=== PATIENT | female | born 1945 | race Caucasian/White ===

== ENCOUNTER 2019-11-15 16:40 | Inpatient (IN) | payer MEDICARE, BC ==
[~2019-11-15] VITALS: Ht 157.5 cm; Wt 88.5 kg
[2019-11-15] MEDS ORDERED: CLONIDINE HCL 0.2 MG TABLET ONE (17:14)
[2019-11-15] MEDS ORDERED: CLONIDINE HCL 0.2 MG TABLET PO ONE (17:15)
[2019-11-15] MEDS ORDERED: BISA10SU95 RC (17:28)
[2019-11-15] MEDS ORDERED: ALPR0.5T8 PO (17:28)
[2019-11-15] MEDS ORDERED: GABA-532 PO (17:28)
[2019-11-15] MEDS ORDERED: IBUP-1953 PO (17:28)
[2019-11-15] MEDS ORDERED: OLME40TA12 PO (17:28)
[2019-11-15] MEDS ORDERED: POLY17PO4 PO (17:28)
[2019-11-15] MEDS ORDERED: MICO24CM4 VG (17:28)
[2019-11-15] MEDS ORDERED: METF-440 PO (17:28)
[2019-11-15] MEDS ORDERED: FERR325T24 PO (17:28)
[2019-11-15] MEDS ORDERED: HYDR-3980 PO (17:28)
[2019-11-15] MEDS ORDERED: [UNRECOGNIZED DRUG - CODE] PO (17:28)
[2019-11-15] MEDS ORDERED: FURO-152 PO (17:28)
[2019-11-15] MEDS ORDERED: OMEP20TA20 PO (17:28)
[2019-11-15] MEDS ORDERED: METH5TAB70 PO (17:28)
[2019-11-15] MEDS ORDERED: DOCU100C36 PO (17:28)
[2019-11-15] MEDS ORDERED: LIDO30AD10 TD (17:28)
[2019-11-15] MEDS ORDERED: PROP80TA4 PO (17:28)
[2019-11-15 17:30] VITALS: BP 190/70
--- NOTE | 2019-11-15 17:33 | NUR ---
PT WAS EVALUATED BY DR TRIPATHI. PT WAS MEDICALLY CLEARED BY DR TRIPATHI. REPORT WAS GIVEN TO RN MHU. PT WAS TRANSFERED TO [facility] ROOM #[id number].
--- NOTE | 2019-11-15 17:45 | NUR ---
Gps/Research Clerk-Received report from [facility]. Admitted a 74 years old female via gurney.Alert,oriented x 3-4 . Upon face to face encounter with patient , she denies any S.I/H.I. Flat affect, denies auditory hallucinations. Claimed she [facility] wheel [facility] Called her daughter Rima Zepeda, who she claimed a working RN in a telemetry unit at [facility].and the manager contact provided by patient. Adequate informations obtained from her daughter. Routine admission care was done.
[2019-11-15] MEDS ORDERED: ACETAMINOPHEN 325 MG TABLET PO PRN (18:00)
[2019-11-15] MEDS ORDERED: TEMAZEPAM 7.5 MG CAPSULE PO PRN (18:00)
[2019-11-15] MEDS ORDERED: LORAZEPAM 1 MG TABLET PO PRN (18:00)
[2019-11-15] MEDS ORDERED: MAG HYDROX/AL HYDROX/SIMETH 30 ML LIQUID UDC PO PRN (18:00)
[2019-11-15] MEDS ORDERED: BLOOD SUGAR DIAGNOSTIC 1 EACH STRIP VI ONE (18:00)
[2019-11-15] MEDS ORDERED: TEMAZEPAM 15 MG CAPSULE PO PRN (18:15)
[2019-11-15 20:17] VITALS: BP 176/70
--- NOTE | 2019-11-15 20:18 | NUR ---
Received patient in bed, calm and cooperative, no sign or symptom of resp. distress, breathing even, unlabored, no indication of pain or discomfort. patient denies SI/HI/AVH. Patient stated "im only here because i wanted to go home from my other facility." no behavioral issue at this time. will continue to monitor patient for safety.
--- NOTE | 2019-11-16 02:53 | NUR ---
GPS/NSG Physician notified through exchange of admission and request medication recon, exchange reported Dr. Tidwell had already done med reconciliation. Will endorse to a.m. shift to follow-up.
[2019-11-16 07:30] VITALS: BP 171/63
[2019-11-16] MEDS: risperiDONE 0.5 MG TABLET PO SCH ×2 (09:26→20:28)
--- NOTE | 2019-11-16 11:27 | NUR ---
Social Work Note/Family Contact: medicine worker spoke with patients daughter Rima ([phone]) and discussed treatment plan and discharge planning. Per Rima, she stated that she would want her mother to go back to the residential home in [place], however; she assumes that patient is not welcomed back. This information writer will follow-up. Per Rima, she refuses for her mother to go to a SNF. medicine worker will work with the MD regarding appropriate discharge planning and will contact patients residential home to see if patient is welcomed.
--- NOTE | 2019-11-16 11:27 | NUR ---
Social Work Note/Initial Discharge Planning: [place] [address]; ([phone]). Patients daughter Rima ([phone]) stated she wants patient back to her senior living. plate worker helper will contact facility to see if pt is welcomed back. plate worker helper will work with the pt and the MD regarding appropriate discharge planning. plate worker helper will form a safe and proper discharge.
[2019-11-16] MEDS ORDERED: MIRALAX 17 GM POWD.PACK PO PRN (11:30)
[2019-11-16] MEDS ORDERED: BISACODYL 10 MG SUPP.RECT RC PRN (11:30)
[2019-11-16] MEDS ORDERED: HYDROCODONE/APAP 10-325 MG TABLET PO PRN (11:30)
[2019-11-16] MEDS ORDERED: IBUPROFEN 400 MG TABLET PO PRN (11:30)
--- NOTE | 2019-11-16 15:11 | NUR ---
Social Work Note/Coordination of Care: construction pit worker spoke with admin coordinator Priscila ([phone]) who stated that patient is not welcomed to [facility].
--- NOTE | 2019-11-16 15:42 | NUR ---
Social Work Note/Family Contact: typing office worker left patients daughter Rima ([phone]) a voicemail in regard to patients placement options and shared to research a placement for patient during the weekend and can share with this communications writer her options. typing office worker will follow up.
[2019-11-16] MEDS: DOCUSATE SODIUM 100 MG CAPSULE PO SCH (16:46)
[2019-11-16] MEDS: METFORMIN HCL 500 MG TABLET PO SCH (17:06)
[2019-11-16] MEDS: MICONAZOLE NITRATE 2% VAG CREA 45 GM TUBE VG SCH (20:41)
[2019-11-16] MEDS ORDERED: MICONAZOLE NITRATE PO SCH (21:00)
--- NOTE | 2019-11-16 22:00 | NUR ---
received to care, sitting in her room, interacting with her room mate. pleasant, but guarded, upon approach. remains confused and disorganized. compliant with her psychotropic medication. as of 2199, she appears to be asleep. no distress noted. will continue to monitor closely.
--- NOTE | 2019-11-17 06:00 | NUR ---
slept 7.5 hours total. continues to sleep. no distress noted. will continue to monitor closely.
[2019-11-17] MEDS: PANTOPRAZOLE SODIUM 40 MG TABLET.DR PO SCH (06:30)
[2019-11-17] MEDS: risperiDONE 0.5 MG TABLET PO SCH ×2 (08:40→20:24)
[2019-11-17] MEDS: FUROSEMIDE 20 MG TABLET PO SCH (08:40)
[2019-11-17] MEDS: DOCUSATE SODIUM 100 MG CAPSULE PO SCH ×2 (08:40→17:22)
[2019-11-17] MEDS: FERROUS SULFATE 325 MG TABEC PO SCH ×2 (08:40→08:56)
[2019-11-17] MEDS: METFORMIN HCL 500 MG TABLET PO SCH ×2 (08:40→17:22)
[2019-11-17] MEDS: METHIMAZOLE 5 MG TABLET PO SCH (08:49)
[2019-11-17] MEDS: LIDOCAINE 5% PATCH TD SCH (08:55)
[2019-11-17] MEDS: LOSARTAN POTASSIUM 50 MG TABLET PO SCH (08:55)
[2019-11-17] MEDS: PROPRANOLOL HCL 40 MG TABLET PO SCH (08:55)
[2019-11-17] MEDS ORDERED: PROPRANOLOL HCL 80 MG PO SCH (09:00)
[2019-11-17] MEDS ORDERED: Medication Not On Formulary EA (Olmesartan Medoxomil (Benicar) 40 MG) PO SCH (09:00)
[2019-11-17] MEDS: MICONAZOLE NITRATE 2% VAG CREA 45 GM TUBE VG SCH (20:24)
--- NOTE | 2019-11-18 05:52 | NUR ---
GPS: ZERO sleep through the night. refused all hs and am meds, offered sleeping meds but refused. resting in bed quietly. no distress noted. will continue to monitor closely.
[2019-11-18] MEDS: PANTOPRAZOLE SODIUM 40 MG TABLET.DR PO SCH (06:08)
[2019-11-18] MEDS: risperiDONE 0.5 MG TABLET PO SCH ×2 (08:51→20:07)
[2019-11-18] MEDS: DOCUSATE SODIUM 100 MG CAPSULE PO SCH ×2 (08:51→16:30)
[2019-11-18] MEDS: METHIMAZOLE 5 MG TABLET PO SCH (08:51)
[2019-11-18] MEDS: FUROSEMIDE 20 MG TABLET PO SCH (08:51)
[2019-11-18] MEDS: LOSARTAN POTASSIUM 50 MG TABLET PO SCH (08:51)
[2019-11-18] MEDS: METFORMIN HCL 500 MG TABLET PO SCH ×2 (08:51→17:15)
[2019-11-18] MEDS: FERROUS SULFATE 325 MG TABEC PO SCH (08:52)
[2019-11-18] MEDS: LIDOCAINE 5% PATCH TD SCH (08:52)
[2019-11-18] MEDS: PROPRANOLOL HCL 40 MG TABLET PO SCH (08:52)
[2019-11-18] MEDS: MICONAZOLE NITRATE 2% VAG CREA 45 GM TUBE VG SCH (20:29)
[2019-11-19] MEDS: PANTOPRAZOLE SODIUM 40 MG TABLET.DR PO SCH (06:06)
[2019-11-19] MEDS: FUROSEMIDE 20 MG TABLET PO SCH (08:34)
[2019-11-19] MEDS: METFORMIN HCL 500 MG TABLET PO SCH ×2 (08:34→17:06)
[2019-11-19] MEDS: METHIMAZOLE 5 MG TABLET PO SCH (08:34)
[2019-11-19] MEDS: risperiDONE 0.5 MG TABLET PO SCH ×2 (08:34→20:16)
[2019-11-19] MEDS: DOCUSATE SODIUM 100 MG CAPSULE PO SCH ×2 (08:34→16:39)
[2019-11-19] MEDS: FERROUS SULFATE 325 MG TABEC PO SCH (08:35)
[2019-11-19] MEDS: LOSARTAN POTASSIUM 50 MG TABLET PO SCH (08:35)
[2019-11-19] MEDS: PROPRANOLOL HCL 40 MG TABLET PO SCH (08:35)
[2019-11-19] MEDS: LIDOCAINE 5% PATCH TD SCH (08:35)
--- NOTE | 2019-11-19 10:41 | NUR ---
Social Work Note/Family Contact: straightedge worker spoke with patients daughter Rima ([phone]). This director underwriter sales followed up with Rima to see if she has found placements. Per Rima, she stated that she will contact this director underwriter sales by tomorrow and has a couple of placements in mind that are willing to take patient.
[2019-11-19] MEDS: MICONAZOLE NITRATE 2% VAG CREA 45 GM TUBE VG SCH (20:21)
[2019-11-20] MEDS: PANTOPRAZOLE SODIUM 40 MG TABLET.DR PO SCH (06:33)
--- NOTE | 2019-11-20 06:36 | NUR ---
GPS: Pt.continues to refuse Protonix med. and scheduled blood drawing this a.m. despite explanation of importance. Risks vs.benefits explained but unsuccessful. Continues to be encouraged to fully comply with her plan of care.
[2019-11-20 07:01] LABS: *BILIRUBIN,URIN NEGATIVE (NEGATIVE); *BLOOD, URINE NEGATIVE (NEGATIVE); *CLARITY,URINE CLEAR (CLEAR); *COLOR,URINE YELLOW (YELLOW); *KETONES,URINE NEGATIVE (NEGATIVE); *UROBILINOGEN,URINE 0.2 E.U./dl (NORMAL); LEUKOCYTE ESTERASE ,URINE NEGATIVE (NEGATIVE); NITRITE, URINE NEGATIVE (NEGATIVE); PH,URINE 5.5 (5.0-8.0); UGLUCOSE NEGATIVE (NEGATIVE)
--- NOTE | 2019-11-20 08:03 | NUR ---
Social Work Note/Family Contact: ironing worker spoke with daughter Rima ([phone]) and stated that she has scheduled a tour to check out assisted livings. This signwriter said by Tuesday she needs an answer.
[2019-11-20] MEDS: risperiDONE 0.5 MG TABLET PO SCH ×2 (08:25→20:55)
[2019-11-20] MEDS: METFORMIN HCL 500 MG TABLET PO SCH ×2 (08:25→17:18)
[2019-11-20] MEDS: FUROSEMIDE 20 MG TABLET PO SCH (08:25)
[2019-11-20] MEDS: DOCUSATE SODIUM 100 MG CAPSULE PO SCH ×2 (08:26→16:37)
[2019-11-20] MEDS: LOSARTAN POTASSIUM 50 MG TABLET PO SCH (08:26)
[2019-11-20] MEDS: FERROUS SULFATE 325 MG TABEC PO SCH (08:26)
[2019-11-20] MEDS: METHIMAZOLE 5 MG TABLET PO SCH (08:26)
[2019-11-20] MEDS: PROPRANOLOL HCL 40 MG TABLET PO SCH (08:27)
[2019-11-20] MEDS: LIDOCAINE 5% PATCH TD SCH (08:28)
--- NOTE | 2019-11-20 13:28 | NUR ---
Social Work Note/PC Hearing Notification: car worker contacted patients daughter Rima, ([phone]) and notified patients probable cause of hearing today.
--- NOTE | 2019-11-20 16:06 | NUR ---
Social Work Note/Individual Therapy: trolley worker met with patient for brief counseling. Patient was drowsy and was asleep. This senior copywriter will follow up.
[2019-11-20] MEDS: MICONAZOLE NITRATE 2% VAG CREA 45 GM TUBE VG SCH (20:51)
[2019-11-21] MEDS: PANTOPRAZOLE SODIUM 40 MG TABLET.DR PO SCH (06:10)
--- NOTE | 2019-11-21 06:10 | NUR ---
Pt. refuse Protonix med. despite explanation of importance. Risks vs.benefits explained but unsuccessful. Continues to be encouraged to fully comply with her plan of care.
[2019-11-21] MEDS: METFORMIN HCL 500 MG TABLET PO SCH ×2 (08:48→17:07)
[2019-11-21] MEDS: FUROSEMIDE 20 MG TABLET PO SCH (08:48)
[2019-11-21] MEDS: DOCUSATE SODIUM 100 MG CAPSULE PO SCH ×2 (08:52→17:00)
[2019-11-21] MEDS: LOSARTAN POTASSIUM 50 MG TABLET PO SCH (08:52)
[2019-11-21] MEDS: FERROUS SULFATE 325 MG TABEC PO SCH (08:52)
[2019-11-21] MEDS: PROPRANOLOL HCL 40 MG TABLET PO SCH (08:52)
[2019-11-21] MEDS: METHIMAZOLE 5 MG TABLET PO SCH (08:53)
[2019-11-21] MEDS: risperiDONE 0.5 MG TABLET PO SCH ×2 (08:53→21:00)
[2019-11-21] MEDS: LIDOCAINE 5% PATCH TD SCH (08:53)
[2019-11-21] MEDS: MICONAZOLE NITRATE 2% VAG CREA 45 GM TUBE VG SCH (21:00)
--- NOTE | 2019-11-21 21:30 | NUR ---
RECEIVED PATIENT IN HER ROOM IN BED. SHE IS NOTED AWAKE A/O X 2. SHE IS NOTED WITH LOW MOOD, WITHDRAWN, ISOLATED, RESERVED, GUARDED AND SPEAKS MINIMALLY. PATIENT REFUSED V/S, REFUSED ALL HER QHS MEDICATIONS INCLUDING RISPERDAL. PATIENT DENIES SI/HI/VH/AH. PATIENT IS REASSURED FOR HER SAFETY. FALL, AWOL AND SAFETY PRECAUTION IN PLACE. WILL CONTINUE TO MONITOR.
[2019-11-22] MEDS: PANTOPRAZOLE SODIUM 40 MG TABLET.DR PO SCH (07:00)
--- NOTE | 2019-11-22 07:25 | NUR ---
Pt.continues to refuse Protonix med. despite explanation of importance. Risks vs.benefits explained. will continue to monitor.
[2019-11-22] MEDS: METFORMIN HCL 500 MG TABLET PO SCH ×2 (08:30→17:21)
--- NOTE | 2019-11-22 08:37 | NUR ---
Received patient awake, alert and oriented x3 in her assigned bed. Bed is in low and locked position. Patient is resting quietly and comfortably. Patient uses a FWW for ambulation and is able to perform ADL's and self care independently. Patient refusing Vital Signs and AM medication. Patient provided with education about importance of monitoring VS and taking medication as prescribed and risks and benefits of taking medication. Patient continues to refuse and states "I'm not taking anything." Patient is encouraged to communicate her needs and will continue to provide education as needed.
--- NOTE | 2019-11-22 08:37 | NUR ---
Social Work Note/Family Contact: carnival worker contacted patients daughter Rima ([phone]) and left a voicemail. This expert medical writer wanted to check in with daughter to see what her status is with placements.
[2019-11-22] MEDS: risperiDONE 0.5 MG TABLET PO SCH ×2 (09:00→20:03)
[2019-11-22] MEDS: METHIMAZOLE 5 MG TABLET PO SCH (09:00)
[2019-11-22] MEDS: PROPRANOLOL HCL 40 MG TABLET PO SCH (09:00)
[2019-11-22] MEDS: DOCUSATE SODIUM 100 MG CAPSULE PO SCH ×2 (09:00→17:00)
[2019-11-22] MEDS: LIDOCAINE 5% PATCH TD SCH (09:00)
[2019-11-22] MEDS: LOSARTAN POTASSIUM 50 MG TABLET PO SCH (09:00)
[2019-11-22] MEDS: FUROSEMIDE 20 MG TABLET PO SCH (09:00)
[2019-11-22] MEDS: FERROUS SULFATE 325 MG TABEC PO SCH (09:00)
--- NOTE | 2019-11-22 13:06 | NUR ---
Social Work Note/Family Contact: anvil worker attempted to contacted patients daughter Rima for the second time ([phone]) and left a voicemail. This fiction and nonfiction writer prose wanted to check in with daughter to see what her status is with placements.
--- NOTE | 2019-11-22 13:41 | NUR ---
Social Work Note/Family Contact: petroleum refinery worker spoke with patients daughter Rima ([phone]) and stated that she has three options: [facility] ([phone]) ([phone]), [facility] [place], [facility] ([phone]) and has a tour with them on Tuesday11/25/19. This parts data writer will follow up with the daughter.
--- NOTE | 2019-11-22 13:49 | NUR ---
Social Work Note/Coordination of Care: production utility worker contacted [facility] ([phone]) and spoke to Nicki and faxed patients H & P psychiatric notes and progress notes. Per Nicki, she stated that the admin coordinator Natalia will look at it and will get back to this senior writer.
[2019-11-22] MEDS: MICONAZOLE NITRATE 2% VAG CREA 45 GM TUBE VG SCH (21:00)
[2019-11-23] MEDS: PANTOPRAZOLE SODIUM 40 MG TABLET.DR PO SCH (06:41)
[2019-11-23] MEDS: FUROSEMIDE 20 MG TABLET PO SCH (08:12)
[2019-11-23] MEDS: METFORMIN HCL 500 MG TABLET PO SCH ×2 (08:12→17:25)
[2019-11-23] MEDS: risperiDONE 0.5 MG TABLET PO SCH ×2 (08:12→21:25)
[2019-11-23] MEDS: LIDOCAINE 5% PATCH TD SCH (09:00)
[2019-11-23] MEDS: DOCUSATE SODIUM 100 MG CAPSULE PO SCH ×2 (09:00→16:18)
[2019-11-23] MEDS: PROPRANOLOL HCL 40 MG TABLET PO SCH (09:00)
[2019-11-23] MEDS: FERROUS SULFATE 325 MG TABEC PO SCH (09:00)
[2019-11-23] MEDS: METHIMAZOLE 5 MG TABLET PO SCH (09:00)
[2019-11-23] MEDS: LOSARTAN POTASSIUM 50 MG TABLET PO SCH (09:00)
--- NOTE | 2019-11-23 14:20 | NUR ---
Social Work Note/Individual Therapy: instrument worker met with patient for brief counseling. Per patient, she expressed that she is doing fine. This repairer typewriter will follow up.
--- NOTE | 2019-11-23 17:36 | NUR ---
GPS: RECEIVED PATIENT AOX2-3, PATIENT DELUSIONAL, AND BEEN REFUSING HER MEDICATION , HOWEVER TODAY SHE TOOK HER RISPERDAL, PATIENT HOWEVER STILL REFUSED TO HAVE HER VITAL SIGN TO BE CHECK
[2019-11-23] MEDS: MICONAZOLE NITRATE 2% VAG CREA 45 GM TUBE VG SCH (21:00)
[2019-11-24] MEDS: PANTOPRAZOLE SODIUM 40 MG TABLET.DR PO SCH (07:00)
[2019-11-24] MEDS: risperiDONE 0.5 MG TABLET PO SCH ×2 (08:13→21:59)
[2019-11-24] MEDS: FUROSEMIDE 20 MG TABLET PO SCH (08:13)
[2019-11-24] MEDS: METFORMIN HCL 500 MG TABLET PO SCH ×2 (08:13→17:01)
[2019-11-24] MEDS: METHIMAZOLE 5 MG TABLET PO SCH (08:14)
[2019-11-24] MEDS: PROPRANOLOL HCL 40 MG TABLET PO SCH (08:14)
[2019-11-24] MEDS: LIDOCAINE 5% PATCH TD SCH (08:14)
[2019-11-24] MEDS: LOSARTAN POTASSIUM 50 MG TABLET PO SCH (08:15)
[2019-11-24] MEDS: DOCUSATE SODIUM 100 MG CAPSULE PO SCH ×2 (08:15→17:00)
[2019-11-24] MEDS: FERROUS SULFATE 325 MG TABEC PO SCH (08:15)
[2019-11-24] MEDS: MICONAZOLE NITRATE 2% VAG CREA 45 GM TUBE VG SCH (21:00)
[2019-11-25] MEDS: PANTOPRAZOLE SODIUM 40 MG TABLET.DR PO SCH (07:00)
[2019-11-25] MEDS: LOSARTAN POTASSIUM 50 MG TABLET PO SCH (08:24)
[2019-11-25] MEDS: PROPRANOLOL HCL 40 MG TABLET PO SCH (08:24)
[2019-11-25] MEDS: FUROSEMIDE 20 MG TABLET PO SCH (08:24)
[2019-11-25] MEDS: METFORMIN HCL 500 MG TABLET PO SCH ×2 (08:24→17:00)
[2019-11-25] MEDS: FERROUS SULFATE 325 MG TABEC PO SCH (08:24)
[2019-11-25] MEDS: risperiDONE 0.5 MG TABLET PO SCH ×2 (08:24→20:05)
[2019-11-25] MEDS: METHIMAZOLE 5 MG TABLET PO SCH (08:25)
[2019-11-25] MEDS: LIDOCAINE 5% PATCH TD SCH (08:25)
[2019-11-25] MEDS: DOCUSATE SODIUM 100 MG CAPSULE PO SCH ×2 (08:25→16:51)
--- NOTE | 2019-11-25 14:52 | NUR ---
Patient still on and off with medication compliance. Refusing labs and VS. only willing to come out of room 1x for a juice. Not socializing with other patients and refusing to eat in day room. Continuing to encourage medication compliance and participation in unit activities.
[2019-11-25] MEDS: MICONAZOLE NITRATE 2% VAG CREA 45 GM TUBE VG SCH (20:05)
[2019-11-26] MEDS: PANTOPRAZOLE SODIUM 40 MG TABLET.DR PO SCH (06:06)
--- NOTE | 2019-11-26 06:14 | NUR ---
Pt refused AM Protonix.
[2019-11-26] MEDS: METFORMIN HCL 500 MG TABLET PO SCH ×2 (08:12→17:41)
[2019-11-26] MEDS: risperiDONE 0.5 MG TABLET PO SCH ×2 (08:12→21:04)
--- NOTE | 2019-11-26 08:13 | NUR ---
Social Work Note/Family Contact: machine lay out worker contacted patients sister Rima ([phone]) and left a voicemail to call back.
[2019-11-26] MEDS: LOSARTAN POTASSIUM 50 MG TABLET PO SCH (08:17)
[2019-11-26] MEDS: FUROSEMIDE 20 MG TABLET PO SCH (08:17)
[2019-11-26] MEDS: PROPRANOLOL HCL 40 MG TABLET PO SCH (08:17)
[2019-11-26] MEDS: DOCUSATE SODIUM 100 MG CAPSULE PO SCH ×2 (08:17→16:38)
[2019-11-26] MEDS: METHIMAZOLE 5 MG TABLET PO SCH (08:17)
[2019-11-26] MEDS: LIDOCAINE 5% PATCH TD SCH (08:17)
[2019-11-26] MEDS: FERROUS SULFATE 325 MG TABEC PO SCH (08:17)
--- NOTE | 2019-11-26 08:56 | NUR ---
Received patient awake, alert and oriented in her assigned bed. Bed is in low and locked position. Patient is able to perform self care and ADL's independently. Patient uses FWW to ambulate. Patient is selective with medications and is refusing all vital signs to be taken. Patient is provided with education about risks and benefits of not taking medication and vital signs, but she continues to refuse. When asked about reasoning for refusal, patient states "I just don't want to." Patient is adherent with psychotropic medication and Metformin. Patient educated about importance of taking psychotropic medication for management of symptoms and management of DM. Patient able to verbalize understanding of all education. Will continue to monitor.
--- NOTE | 2019-11-26 12:24 | NUR ---
Social Work Note/Family Contact: grounds worker spoke with patients daughter Rima ([phone]) who stated that she has two options [facility] ([phone]) and [facility] ([phone]) who stated that they will evaluate patient.
--- NOTE | 2019-11-26 14:04 | NUR ---
Social Work Note/Coordination of Care: sheet metal worker supervisor called [facility] ([phone]) who is able to help with patients placement and stated that he has not spoken to the daughter. This typewriter ribbon winder informed that he needs to speak to the daughter before moving forward. Rocky who works with [facility] ([phone]) contacted this typewriter ribbon winder and requested psychiatric H & P notes and progress notes ([phone]) this typewriter ribbon winder faxed it. sheet metal worker supervisor also contacted [facility] ([phone]) and requested to speak to [facility] admin coordinator who will contact this typewriter ribbon winder.
--- NOTE | 2019-11-26 16:20 | NUR ---
Social Work Note/Family Contact: forestry conservation worker spoke with patients daughter Rima ([phone]) and stated that by Tuesday there is a deadline and that patient is accepted to SNF. This casualty underwriter shared that patient can be placed at a SNF and upon that she may continue to search for a assisted living. Per Rima, she insisted on finding her a assisted living by Tuesday.
--- NOTE | 2019-11-26 16:22 | NUR ---
Social Work Note/Coordination of Care: carry in worker reached out to CJ from [facility] ([phone]) who expressed that patient is accepted. This senior mortgage underwriter sent psychiatric H & P psychiatric notes and progress notes. carry in worker also faxed to [facility] to [facility] ([phone]) H & P psychiatric notes and progress notes and is waiting integration project manager.
--- NOTE | 2019-11-26 16:26 | NUR ---
Social Work Note/Coordination of Care: fruit i farmworker contacted Yg Quiñones from [facility] ([phone]) and sent psychiatric H & P psychiatric notes and progress notes. Per Yg, pt is accepted
[2019-11-26] MEDS: MICONAZOLE NITRATE 2% VAG CREA 45 GM TUBE VG SCH (20:09)
[2019-11-27] MEDS: PANTOPRAZOLE SODIUM 40 MG TABLET.DR PO SCH (06:44)
[2019-11-27] MEDS: METFORMIN HCL 500 MG TABLET PO SCH ×2 (08:27→17:31)
[2019-11-27] MEDS: risperiDONE 0.5 MG TABLET PO SCH ×2 (08:27→20:26)
[2019-11-27] MEDS: DOCUSATE SODIUM 100 MG CAPSULE PO SCH ×2 (09:00→16:34)
[2019-11-27] MEDS: METHIMAZOLE 5 MG TABLET PO SCH (09:00)
[2019-11-27] MEDS: FERROUS SULFATE 325 MG TABEC PO SCH (09:00)
[2019-11-27] MEDS: LIDOCAINE 5% PATCH TD SCH (09:00)
[2019-11-27] MEDS: PROPRANOLOL HCL 40 MG TABLET PO SCH (09:00)
[2019-11-27] MEDS: FUROSEMIDE 20 MG TABLET PO SCH (09:00)
[2019-11-27] MEDS: LOSARTAN POTASSIUM 50 MG TABLET PO SCH (09:00)
--- NOTE | 2019-11-27 09:32 | NUR ---
Received patient awake, alert and oriented x3 in her assigned bed. Bed is in low and locked position. Patient is able to ambulate independently with FWW, able to perform self care and ADL's independently. Patient is cooperative and redirectable with staff but is quiet, withdrawn, guarded, and dismissive with this creative writer during interview. Patient is medication adherent only with psychotropic medication and Metformin, no adverse reaction noted. No signs or symptoms of hypoglycemia noted. Patient is refusing all other medication and refusing for staff to take VS. Patient provided with education about importance of taking medication as prescribed for mental and physical health and educated about importance of monitoring VS, but patient continues to refuse. Patient is able to communicate her needs to staff. Provided with education about impulse control, verbalizes understanding of education. Will continue to monitor.
--- NOTE | 2019-11-27 12:10 | NUR ---
Social Work Note/Family Contact: printed circuit board reworker contacted patients daughter Rima ([phone]) and informed the patients discharge plan for 11/28/19. Per Rima, she has been requesting for assisted living and has been contacting facilities but has been unsuccessful. This medical technical writer also contacted the [facility] ([phone]) who denied patient, [facility] ([phone]) denied, [facility] denied per rima, and [facility] ([phone]) denied due to patients behavior. This medical technical writer informed that she will be served with medicare letter of denial and explained the process. However, this medical technical writer stated that she may transfer to [facility] and [facility] and may transfer later. Per Rima, she requested sometime to do some research.
--- NOTE | 2019-11-27 12:25 | NUR ---
Social Work Note/Family Contact: dry house worker received phone call from daughter Rima ([phone]) who stated that patient may be discharged to [facility]. This verse writer provided further information in regard to patients SNF.
--- NOTE | 2019-11-27 13:23 | NUR ---
Social Work Note/Firearms Report: Computer Drafter completed and submitted a [employer] firearms report for 5250 grave disability certification. A copy of report has been placed in patient chart.
[2019-11-27] MEDS ORDERED: ACETAMINOPHEN 325 MG TABLET PO PRN (18:15)
[2019-11-27] MEDS ORDERED: MAG HYDROX/AL HYDROX/SIMETH 30 ML LIQUID UDC PO PRN (18:15)
[2019-11-27] MEDS ORDERED: MAGNESIUM HYDROXIDE 30 ML LIQUID UDC PO PRN (18:15)
[2019-11-27] MEDS ORDERED: TEMAZEPAM 7.5 MG CAPSULE PO PRN (18:15)
[2019-11-27] MEDS ORDERED: LORAZEPAM 1 MG TABLET PO PRN (18:15)
[2019-11-27] MEDS: MICONAZOLE NITRATE 2% VAG CREA 45 GM TUBE VG SCH (20:25)
--- NOTE | 2019-11-27 22:00 | NUR ---
received to care, sitting in her room, pleasant, but guarded, upon approach. compliant with her psychotropic medication. as of 2199, she appears to be asleep. no distress noted. will continue to monitor closely.
--- NOTE | 2019-11-28 06:00 | NUR ---
slept 7 hours, total.
[2019-11-28] MEDS: PANTOPRAZOLE SODIUM 40 MG TABLET.DR PO SCH (06:51)
--- NOTE | 2019-11-28 08:06 | NUR ---
Social Work Note/Discharge: Patient will be discharged to [facility] to [facility] [address] [place] [address]; via Ambulance transportation at 10:30AM. Sleeper Cutter spoke with DMITRIY, Spring Bender at [facility]; ([phone]), who stated patient will be accepted at facility today. Patient is alert and oriented x2-3, and is not able to plan for self-care at this time, but is willing to accept care provided for her at the facility. Patient denies any suicidal or homicidal ideations. Patient is aware and agreeable with discharge plans. Patients daughter, Rima ([phone]) is aware and agreeable with discharge plans. Patient will continue to follow-up with her (Psychiatrist) Dr. Kapoor and (Animation Director) Dr. Mtz at [facility] [address] [place] [address]; ). Patient will follow-up at the center. Patient presents with euthymic mood and congruent affect.
[2019-11-28] MEDS: FUROSEMIDE 20 MG TABLET PO SCH (08:43)
[2019-11-28] MEDS: METFORMIN HCL 500 MG TABLET PO SCH (08:43)
[2019-11-28] MEDS: FERROUS SULFATE 325 MG TABEC PO SCH (08:44)
[2019-11-28] MEDS: PROPRANOLOL HCL 40 MG TABLET PO SCH (08:44)
[2019-11-28] MEDS: DOCUSATE SODIUM 100 MG CAPSULE PO SCH (08:44)
[2019-11-28] MEDS: LOSARTAN POTASSIUM 50 MG TABLET PO SCH (08:44)
[2019-11-28] MEDS: risperiDONE 0.5 MG TABLET PO SCH (08:45)
[2019-11-28] MEDS: LIDOCAINE 5% PATCH TD SCH (08:46)
[2019-11-28] MEDS: METHIMAZOLE 5 MG TABLET PO SCH (08:46)
--- NOTE | 2019-11-28 11:30 | NUR ---
Patient discharged to [facility] via ambulance. All belongings sent with patient. No SI or HI noted. Report called to Ginette at the SNF using SBAR form. No acute distress noted. Patient aware and agreeable to transfer.
== END 2019-11-28 12:00 | DRG 885 ==
LOC: ER 16:40 → GPS 17:19
PROVIDERS: ADMIT Psychiatry & Neurology Psychiatry; ATTEND Registered Nurse
DX: F29 Unspecified psychosis not due to a substance or known physiological condition (principal); I11.0 Hypertensive heart disease with heart failure; F03.91 Unspecified dementia, unspecified severity, with behavioral disturbance; K21.9 Gastro-esophageal reflux disease without esophagitis; Z91.19 Patient's noncompliance with other medical treatment and regimen; Z91.14 Patient's other noncompliance with medication regimen; G89.4 Chronic pain syndrome; I50.9 Heart failure, unspecified; E11.9 Type 2 diabetes mellitus without complications; Z79.84 Long term (current) use of oral hypoglycemic drugs; E66.01 Morbid (severe) obesity due to excess calories; I70.0 Atherosclerosis of aorta
CPT/HCPCS: 71045; 87086; 93005; A4663